=== PATIENT | female | born 2000 | race African-American/Black ===

== ENCOUNTER 2020-05-04 22:49 | Emergency (ER) | payer MEDICAID, SELFPAY ==
[2020-05-04 22:50] VITALS: BP 115/58; PULSE 95; RESP 18; TEMP 37.2; O2SAT 98
--- NOTE | 2020-05-04 23:02 | PC.NURSE ---
pt denies any drainage from ear at this time. rates pain 9/10. last took ibuprofen 3 hours [employer].
--- NOTE | 2020-05-05 00:01 | ED.EAR ---
HPI - Ear Problem General Chief complaint: Ear Stated complaint: left ear ache Time Seen by Provider: 05/04/20 23:56 History of Present Illness HPI Narrative: Patient presents for left ear pain since 5 PM last evening. She has been swimming. She denies runny nose cough fever chills or sweats. She says the pain is 9 out of 10. She denies medical problems. She works at [employer]. Complaint: ear pain Location: left ear Duration: constant Related Data Allergies Allergy/AdvReac Type Severity Reaction Status Date / Time amoxicillin Allergy Mild swelling Verified 05/05/20 00:00 Review of Systems Review of Systems: Narrative: CONSTITUTIONAL: Denies fever, chills, or sweats. EYES: Denies visual changes, redness, or discharge. ENT: Denies rhinorrhea, congestion, sore throat, but does have left ear pain. CARDIOVASCULAR: Denies chest pain, palpitations, or edema. RESPIRATORY: Denies cough or dyspnea. GASTROINTESTINAL: Denies abdominal pain, nausea, vomiting, or diarrhea. GENITOURINARY: Denies dysuria or hematuria. SKIN: Denies rash or itching. MUSCULOSKELETAL: Denies back pain, joint pain, or myalgia. NEUROLOGIC: Denies headache, numbness, or weakness. PSYCHIATRIC: Denies anxiety or depression. [facility] Past Medical History Medical History (Updated 05/05/20 @ 00:08 by Sadia Chaney MD) Otitis media Social History Social History Gender identity (if verbalized by the patient): Female Exam Narrative: Exam Narrative: GENERAL: Well-appearing, well-nourished, and in no acute distress. HEAD: Normocephalic, atraumatic. EYES: PERRLA and EOMI. ENT: Nares clear, no rhinorrhea or epistaxis. Mucous membranes moist. Left TM is red. NECK: Supple. CHEST: Clear to auscultation. No respiratory distress. HEART: Regular rate and rhythm. No murmur heard. Normal peripheral pulses. ABDOMEN: Soft, nontender, nondistended, normal active bowel sounds. EXTREMITIES: Normal range of motion. No edema. SKIN: Warm, dry, no rash. NEURO: No focal deficits. Alert and oriented x3. PSYCH: Normal mood and affect. Course Vital Signs Vital signs: Vital Signs Temperature 98.9 F 05/04/20 22:50 Pulse Rate 95 05/04/20 22:50 Respiratory Rate 18 05/04/20 22:50 Blood Pressure 115/58 L 05/04/20 22:50 Pulse Oximetry 98 05/04/20 22:50 Temperature 98.9 F 05/04/20 22:50 Pulse Rate 95 05/04/20 22:50 Respiratory Rate 18 05/04/20 22:50 Blood Pressure 115/58 L 05/04/20 22:50 Pulse Oximetry 98 05/04/20 22:50 Medical Decision Making Medical Records Medical records reviewed: Yes I reviewed the patient's medical records. Vital Signs Vital Signs: Vital Signs Temperature 98.9 F 05/04/20 22:50 Pulse Rate 95 05/04/20 22:50 Respiratory Rate 18 05/04/20 22:50 Blood Pressure 115/58 L 05/04/20 22:50 Pulse Oximetry 98 05/04/20 22:50 Temperature 98.9 F 05/04/20 22:50 Pulse Rate 95 05/04/20 22:50 Respiratory Rate 18 05/04/20 22:50 Blood Pressure 115/58 L 05/04/20 22:50 Pulse Oximetry 98 05/04/20 22:50 Discharge Plan Discharge Clinical Impression: Otitis media Qualifiers: Otitis media type: unspecified Chronicity: acute Qualified Code(s): H66.90 - Otitis media, unspecified, unspecified ear Patient Disposition: Home, Self-Care Condition: Stable Instructions: Antibiotic Form Prescriptions: New clindamycin HCl 300 mg capsule 300 mg PO Q8H Qty: 30 RF: 0 naproxen sodium [Anaprox DS] 550 mg tablet 550 mg PO BID PRN (Reason: pain) Qty: 10 RF: 0 Follow-up/Referrals: PHYSICIAN,[employer] [Primary Care Provider] - Juan C Carrillo MD [Physician] - (Call and make a new patient appointment) Stand Alone Forms: Work/School Release IP Time of Disposition: 00:01
[2020-05-05] MEDS: IBUPROFEN 600 MG TABLET PO (00:10)
[2020-05-05] MEDS: ACETAMINOPHEN 500 MG TABLET 1000 MG PO (00:10)
[2020-05-05 01:04] VITALS: BP 111/89; PULSE 90; RESP 16; TEMP 36.9; O2SAT 99
== END 2020-05-05 01:06 | disposition home or self-care (01) ==
PROVIDERS: Emergency Provider Emergency Medicine
DX: H66.92 Otitis media, unspecified, left ear (principal)
CPT/HCPCS: 99283; A9270